=== PATIENT | male | born 1955 | race Caucasian/White ===

== ENCOUNTER 2019-11-19 06:08 | Observation (INO) | payer BC ==
[~2019-11-19] VITALS: Ht 185.4 cm; Wt 86.6 kg
[~2019-11-19 06:08] MED LIST: PROP160C PO
--- NOTE | 2019-11-19 06:22 | NUR ---
Patient BIB [facility] c/o chest pressure and sweating which woke him up around 0400. Patient has never experienced this before. He has no cardiac hx. EMS administered 325 mg ASA and 1 tab Nitro which relieved his pain. Patient is in NAD. He is currently experiencing slight left sided chest pressure which does not radiate. No diaphoresis noted. Denies nausea.
[2019-11-19] MEDS ORDERED: ASPIRIN 81 MG TABLET CHEW PO ONE (06:30)
[2019-11-19 06:37] LABS: BASOPHILS # (AUTO) 0.02 x10^3/uL (0-0.1); BASOPHILS % (AUTO) 0 % (0-1); EOSINOPHILS # (AUTO) 0.03 x10^3/uL (0-0.4); EOSINOPHILS % (AUTO) 0 % (1-7); LYMPHOCYTES # (AUTO) 1.38 x10^3/uL (1-3.4); LYMPHOCYTES % (AUTO) 10 % (22-44); MD NO; MEAN CORPUSCULAR HEMOGLOBIN 31.2 pg (27.5-34.5); MEAN CORPUSCULAR HGB CONC 34.1 g/dL (33.2-36.2); MEAN CORPUSCULAR VOLUME 91.7 fL (81-97); MEAN PLATELET VOLUME 8.1 fL (7.4-10.4); MONOCYTES # (AUTO) 0.97 x10^3/uL (0.2-0.8); MONOCYTES % (AUTO) 7 % (2-9); NEUTROPHILS # (AUTO) 11.54 x10^3/uL (1.8-6.8); NEUTROPHILS % (AUTO) 83 % (42-75); PLATELET COUNT 218 x10^3/uL (130-400); RED BLOOD COUNT 4.83 x10^6/uL (4.38-5.82)
[2019-11-19 06:48] LABS: ALANINE AMINOTRANSFERASE 27 U/L (12-78); ALBUMIN 3.7 g/dL (3.4-5.0); ANION GAP 5 mmol/L (5-15); CALCIUM 8.6 mg/dL (8.5-10.1); CHLORIDE 108 mmol/L (98-107); CREATININE 0.83 mg/dL (0.7-1.3)
[2019-11-19 06:52] LABS: ALKALINE PHOSPHATASE 84 U/L (45-117); BILIRUBIN,TOTAL 0.4 mg/dL (0.2-1.0); TOTAL PROTEIN 6.7 g/dL (6.4-8.2); TROPONIN I < 0.015 ng/mL (0.000-0.045)
--- NOTE | 2019-11-19 07:02 | NUR ---
[facility] RPT REC'D AND PT CARE ASSUMED. PT VSS, NAD NOTED, POC DISCUSSED AND QUESTIONS ANSWERED. CALL LIGHT W/I REACH. AT BEDSIDE.
[2019-11-19 08:30] VITALS: BP 131/74
[2019-11-19] MEDS ORDERED: NITROGLYCERIN 0.4 MG/SPRAY SL PRN (09:30)
[2019-11-19] MEDS ORDERED: NITROGLYCERIN 0.4 MG BOTTLE (25 TABS) SL PRN (09:30)
[2019-11-19] MEDS ORDERED: SODIUM CHLORIDE 0.9%, 500ML IVBOLUS ONE (09:30)
[2019-11-19] MEDS ORDERED: BACLOFEN 10 MG TABLET PO PRN (09:30)
[2019-11-19] MEDS ORDERED: ACETAMINOPHEN 325 MG TABLET PO PRN (09:30)
[2019-11-19] MEDS ORDERED: ASPIRIN 325 MG TABLET EC PO ONE (09:30)
[2019-11-19] MEDS ORDERED: morphine SULFATE 10 MG/ML, 1ML IVPush PRN (09:30)
[2019-11-19 10:13] LABS: CHOL/HDL RATIO 3.9; LDL/HDL RATIO 2.3 (0.5-3.0)
[2019-11-19 12:35] VITALS: BP 132/67
[2019-11-19 12:50] LABS: TROPONIN I < 0.015 ng/mL (0.000-0.045)
[2019-11-19] MEDS ORDERED: OMEP-110 PO (16:46)
[2019-11-19] MEDS: SODIUM CHLORIDE FLUSH 10ML SYR IVF SCH (21:21)
[2019-11-19] MEDS: ATORVASTATIN 40 MG TABLET PO SCH (21:21)
[2019-11-19 21:24] VITALS: BP 143/74
[2019-11-20 03:51] VITALS: BP 141/69
[2019-11-20] MEDS ORDERED: ASPIRIN 325 MG TABLET EC PO SCH (06:00)
[2019-11-20 06:01] LABS: ANION GAP 7 mmol/L (5-15); CHLORIDE 108 mmol/L (98-107)
[2019-11-20 06:02] LABS: CREATININE 0.82 mg/dL (0.7-1.3)
[2019-11-20 06:10] LABS: BASOPHILS # (AUTO) 0.01 x10^3/uL (0-0.1); BASOPHILS % (AUTO) 0 % (0-1); EOSINOPHILS # (AUTO) 0.02 x10^3/uL (0-0.4); EOSINOPHILS % (AUTO) 0 % (1-7); LYMPHOCYTES # (AUTO) 1.76 x10^3/uL (1-3.4); LYMPHOCYTES % (AUTO) 30 % (22-44); MD NO; MEAN CORPUSCULAR HEMOGLOBIN 30.9 pg (27.5-34.5); MEAN CORPUSCULAR HGB CONC 33.8 g/dL (33.2-36.2); MEAN CORPUSCULAR VOLUME 91.2 fL (81-97); MEAN PLATELET VOLUME 8.3 fL (7.4-10.4); MONOCYTES # (AUTO) 0.48 x10^3/uL (0.2-0.8); MONOCYTES % (AUTO) 8 % (2-9); NEUTROPHILS # (AUTO) 3.66 x10^3/uL (1.8-6.8); NEUTROPHILS % (AUTO) 62 % (42-75); PLATELET COUNT 199 x10^3/uL (130-400); RED BLOOD COUNT 4.53 x10^6/uL (4.38-5.82); RED CELL DISTRIBUTION WIDTH 14.3 % (9.4-14.8)
[2019-11-20] MEDS: ASPIRIN 81 MG TABLET EC PO SCH (06:41)
[2019-11-20 07:35] VITALS: BP 144/61
[2019-11-20] MEDS: PROPRANOLOl 80 MG CAP.SA.24H PO SCH (07:41)
[2019-11-20] MEDS: SODIUM CHLORIDE FLUSH 10ML SYR IVF SCH ×2 (07:41→20:55)
[2019-11-20] MEDS: LISINOPRIL 10 MG TABLET PO SCH (10:20)
[2019-11-20] MEDS: SODIUM CHLORIDE 0.9% 1,000 ML IV SCH ×6 (10:20→19:27)
[2019-11-20 13:14] VITALS: BP 154/70
[2019-11-20] MEDS ORDERED: MIDAZOLAM 1 MG/ML, 2ML ONE (13:29)
[2019-11-20] MEDS ORDERED: FENTANYL PF 100 MCG/2ML ONE ×2 (13:30→15:21)
[2019-11-20] MEDS ORDERED: VERAPAMIL 2.5 MG/ML, 2ML ONE ×2 (13:30→15:22)
[2019-11-20] MEDS ORDERED: LIDOCAINE-MPF 1%, 5ML ONE (13:30)
[2019-11-20] MEDS ORDERED: HEPARIN 1,000 UNITS/ML, 10ML ONE ×2 (13:30→15:22)
[2019-11-20] MEDS ORDERED: MIDAZOLAM 1 MG/ML, 5ML ONE (15:21)
[2019-11-20] MEDS ORDERED: BIVALIRUDIN 250 MG ONE (15:22)
[2019-11-20] MEDS ORDERED: TICAGRELOR 90 MG TABLET ONE (15:22)
[2019-11-20] MEDS ORDERED: LIDOCAINE 2%, 20ML ONE (15:22)
[2019-11-20] MEDS: ATORVASTATIN 40 MG TABLET PO SCH (20:55)
[2019-11-20 22:11] VITALS: BP 103/57
[2019-11-21 02:51] VITALS: BP 122/60
[2019-11-21] MEDS: ASPIRIN 81 MG TABLET EC PO SCH (06:00)
[2019-11-21 08:43] VITALS: BP 157/70
[2019-11-21] MEDS: SODIUM CHLORIDE FLUSH 10ML SYR IVF SCH (09:00)
[2019-11-21] MEDS ORDERED: LISI-167 PO (09:21)
[2019-11-21] MEDS: LISINOPRIL 10 MG TABLET PO SCH (09:25)
[2019-11-21] MEDS: PROPRANOLOl 80 MG CAP.SA.24H PO SCH (09:25)
== END 2019-11-21 10:54 | disposition home or self-care (01) ==
LOC: ED 07:13 → EDIP 07:14 → OBSVTOIN 07:14 → INTOOBSV 07:14 → ED 07:45 → 5SO 08:26 → DCLOUNGE 11-21 10:32
PROVIDERS: ADMIT Hospitalist; ATTEND Hospitalist
DX: R07.9 Chest pain, unspecified (principal); I24.9 Acute ischemic heart disease, unspecified; D72.829 Elevated white blood cell count, unspecified; E78.5 Hyperlipidemia, unspecified; G25.0 Essential tremor; I10 Essential (primary) hypertension; I44.0 Atrioventricular block, first degree; Z87.891 Personal history of nicotine dependence
CPT/HCPCS: 36415; 71045; 78452; 80048; 80053; 80061; 83880; 84484; 85025; 93005; 93017; 93306; 93356; 93458; 99156; 99285; A9502; C1769; C1894; G0378; J1644; J2250; J3010; J3490; J7030; J7040; Q9967; J0583